=== PATIENT | male | born 2000 | race Caucasian/White ===

== ENCOUNTER 2019-12-16 15:48 | Emergency (ER) | payer OTHER ==
--- NOTE | 2019-12-16 16:11 | RAD ---
Radiograph right second digit 3 views: HISTORY: 19-year-old male status post acute crush injury to right index finger. FINDINGS: No fracture, dislocation, or any other osseous abnormality. IMPRESSION: Negative
== END 2019-12-16 16:28 | disposition home or self-care (01) ==
LOC: ERS 15:48
DX: S60.021A Contusion of right index finger without damage to nail, initial encounter (principal); W23.0XXA Caught, crushed, jammed, or pinched between moving objects, initial encounter; Y99.0 Civilian activity done for income or pay

== ENCOUNTER 2023-04-19 13:06 | Outpatient (CLI) | payer BC | END 2023-04-19 13:07 | disposition home or self-care (01) | LOC: BICRAD 13:06 | PROVIDERS: ATTEND Chiropractor | DX: M54.41 Lumbago with sciatica, right side (principal); M99.02 Segmental and somatic dysfunction of thoracic region; M41.24 Other idiopathic scoliosis, thoracic region | CPT/HCPCS: 72072; 72100 ==